=== PATIENT | male | born 1985 | race Caucasian/White ===

== ENCOUNTER → 2017-06-26 | Day surgery (SDC) | payer BC ==
[~2017-06-26] MED LIST: ACYCLOVIR200 MG PO; ANASTROZOLE1 MG PO; CEFAZOLIN SOD 1 GM VIAL ONE; DEXAMETHASONE SOD PHOS INJ 4 MG/ML VIAL ONE; FENTANYL CITRATE/PF 100MCG/2 ML INJ ONE; KETOROLAC TROMETHAMINE 30 MG/ML VIAL ONE; LAMICTAL100 MG PO; LIDOCAINE HCL 2% LOCAL INJ 5 ML SDV VIAL INJ ONE; MIDAZOLAM HCL 2 MG/2 ML VIAL ONE; ONDANSETRON HCL INJ 2 MG/ML VIAL ONE; PROPOFOL IV EMULSION 10 MG/ML 20 ML VIAL ONE; SEVOFLURANE INHAL SOLN 250 ML PEN BTL ONE
--- NOTE | 2017-06-26 13:26 | Operative Report ---
DATE OF PROCEDURE: June 26, 2017 PASSENGER RELATIONS REPRESENTATIVE: Juan Kolb PA-C The patient was brought to the operating room for induction of anesthesia. Throughout this case, my PA's assistance was necessary for retraction of soft tissue and positioning of the extremity. This allows for efficient and technically successful execution of the operation and is considered medically necessary. PREOPERATIVE DIAGNOSIS: Fracture/dislocation left 5th finger. POSTOPERATIVE DIAGNOSIS: Fracture/dislocation left 5th finger. PROCEDURE: Closed reduction and percutaneous pin fixation left 5th finger. INDICATIONS: The patient is a 31-year-old gentleman who was roughhousing around with this friend. He injured his left 5th finger at the tip of the finger. He presented with a delayed presentation showing a previous fracture/dislocation. He also has an extensor lag. The findings and options have been discussed. We plan on closed reduction and percutaneous pin fixation. The risks and benefits were explained to the patient. He stated he understood and wished to proceed. DESCRIPTION OF PROCEDURE: The patient was brought to the operating room and placed under general anesthetic. His left upper extremity was prepped and draped in a sterile manner. A preoperative time out was performed. A C-arm image intensifier was used to assist in reducing the left 5th DIP joint. A 0.045 K-wire was placed from the distal tip of the distal phalanx across the DIP joint while the finger was held in a reduced position. Final x-rays confirmed satisfactory reduction. The pin was cut short and placed with a cap. He was extubated and transported to the recovery room in stable condition. There was no blood loss, and all needle and sponge counts were correct. Job#: [id number]
== END | disposition home or self-care (01) ==
LOC: OR 05:17
PROVIDERS: ATTEND Specialist
DX: S62.637A Displaced fracture of distal phalanx of left little finger, initial encounter for closed fracture (principal); M20.012 Mallet finger of left finger(s); J45.909 Unspecified asthma, uncomplicated; W19.XXXA Unspecified fall, initial encounter; Y93.83 Activity, rough housing and horseplay; Y99.8 Other external cause status; F17.210 Nicotine dependence, cigarettes, uncomplicated
CPT/HCPCS: 26756; 76000; J0690; J1100; J1885; J2001; J2250; J2405